=== PATIENT | male | born 1985 | race African-American/Black ===

== ENCOUNTER → 2021-06-02 | Outpatient (CLI) | payer OTHER ==
[~2021-06-02] MED LIST: ISOVUE-370 76% 100ML VIAL As Ordered ONE
--- NOTE | 2021-06-03 06:34 | REP ---
INDICATION: KIDNEY NEOPLASM. COMPARISON: None TECHNIQUE: Axial precontrast, contrast-enhanced and delayed images of the abdomen using 100 cc Isovue 370 intravenous contrast material. Coronal and sagittal reformations obtained1. This CT examination was performed using the following dose reduction techniques: Automated exposure control, adjustment of mA and/or kv according to the patient's size, and the use of iterative reconstruction technique. FINDINGS: Liver, spleen, pancreas, gallbladder, bilateral adrenal glands and left kidney are normal in all phases of evaluation. Incidental mild hepatosteatosis cannot be excluded. Left kidney includes 1.2 cm, 3.7 cm and 2.2 cm simple appearing cysts The visualized enteric system is unremarkable.. No ascites. No free air. No intraperitoneal or retroperitoneal adenopathy. Abdominal aorta and vasculature appear normal. Musculoskeletal structures are intact and without acute osseous abnormality. Lung bases are clear. IMPRESSION: No acute abdominopelvic pathology appreciated. Three simple appearing left renal cyst. No further urinary tract pathology appreciated. <Electronically signed by Carlos Camacho > 06/03/21 [id number]
== END ==
LOC: M RAD 16:38
PROVIDERS: ATTEND Physician Assistant
DX: D49.512 Neoplasm of unspecified behavior of left kidney (principal)
CPT/HCPCS: 74170; Q9967